=== PATIENT | male | born 2000 | race Two or more races ===

== ENCOUNTER 2024-03-12 16:06 | Emergency (ER) | payer OTHER ==
[~2024-03-12] VITALS: Ht 182.9 cm; Wt 70.3 kg
[2024-03-12] MEDS ORDERED: RELAFEN DS1000 MG PO (16:30)
[2024-03-12] MEDS ORDERED: APIXABAN 5 MG TABLET PO ONE (18:45)
== END 2024-03-12 23:06 | disposition home or self-care (01) ==
LOC: ER 16:07
DX: M79.662 Pain in left lower leg (principal); Z98.890 Other specified postprocedural states; Z91.013 Allergy to seafood

== ENCOUNTER 2024-03-13 11:05 | Emergency (ER) | payer OTHER ==
[~2024-03-13] VITALS: Ht 182.9 cm; Wt 70.3 kg
[~2024-03-13 11:05] MED LIST: RELAFEN DS1000 MG PO
[2024-03-13 12:10] LABS: HEMATOCRIT 40.7 % (39.0-48.0); MEAN CELL VOLUME 96.4 fL (80.0-100.00); MEAN CORPUSCULAR HEMOGLOBIN 33.3 pg (27.00-32.0); MEAN CORPUSCULAR HGB CONC 34.5 g/dl (32.0-36.0); PLATELET COUNT 258 K/uL (150-450); RED BLOOD COUNT 4.22 M/uL (4.00-6.00); RED CELL DISTRIBUTION WIDTH 13.8 % (11.5-14.5)
[2024-03-13 12:36] LABS: CALCIUM 9.5 mg/dL (8.5-10.1); CREATININE SERUM 1.05 mg/dL (0.70-1.30); GFR 86.78; POTASSIUM 4.81 mEq/L (3.5-5.1)
[2024-03-13 12:53] LABS: C-REACTIVE PROTEIN 0.35 MG/DL (0.00-0.29)
[2024-03-13 13:33] LABS: ERYTHROCYTE SEDIMENTATION RATE 7 mm/hr
== END 2024-03-13 13:52 | disposition home or self-care (01) ==
LOC: ER 11:07
PROVIDERS: General Practice
DX: M79.605 Pain in left leg (principal); Z96.652 Presence of left artificial knee joint; Z91.013 Allergy to seafood